=== PATIENT | female | born 1970 | race American Indian/Alaskan Native ===

== ENCOUNTER 2016-10-27 12:46 | Outpatient (CLI) | payer OTHER ==
--- NOTE | 2016-10-27 13:50 | XRay Report ---
CHEST 2 VIEWS INDICATION: Fever of unknown origin. COMPARISON: None similar. FINDINGS: PA and lateral chest radiographs demonstrate normal cardiomediastinal silhouette and clear lungs, given the inspiration. Mild thoracic spine degenerative spurring. CONCLUSION: No acute disease in the chest. Thank you for the opportunity to participate in this patient's care.
== END 2016-10-27 12:47 | disposition home or self-care (01) ==
LOC: XRAY 12:46
PROVIDERS: ATTEND Internal Medicine Infectious Disease
DX: R50.9 Fever, unspecified (principal)
CPT/HCPCS: 71020